=== PATIENT | male | born 1930 | race Caucasian/White ===

== ENCOUNTER 2017-10-24 11:57 | Emergency (ER) | payer MEDICARE ==
[2017-10-24 12:09] VITALS: PULSE 76
[2017-10-24] MEDS ORDERED: NORCO 5/325 MG PO ONE (12:21)
[2017-10-24] MEDS ORDERED: NORCO 5/325 MG ONE (12:25)
--- NOTE | 2017-10-24 12:27 | ERPHSYRPT ---
- History of Present Illness Time Seen by Provider: 10/24/17 12:15 Source: patient Exam Limitations: no limitations Patient Subjective Stated Complaint: Bilateral Lower leg pain x10 years, worse in 4 days. Triage Nursing Assessment: Pt presents to the ED with complaints of bilateral lower leg pain, hx of neuropathy. Pt denies new injury but states he injured his back 10 years ago. Pt states he has had pain for 10 years with worsening x4 days. No distress noted, skin PWD. Physician History: Pt has been c/o chronic, bilateral leg pain, for years. He started c/o more severe pain in both legs since this morning. He denies any injury, severe back pain, fever, difficulty breathing or chest pain. He has been taking Neurontin with no relief. He called his doctor's office today and was instructed to come here. Method of Injury: unknown Occurred: this morning Quality: constant Severity of Pain-Max: moderate Severity of Pain-Current: moderate Lower Extremities Pain: leg: bilateral Modifying Factors: Improves With: nothing Associated Symptoms: none Allergies/Adverse Reactions: No Known Drug Allergies Allergy (Verified 09/12/17 14:51) Home Medications: Aspirin 81 mg PO DAILY 11/06/13 [History] Glipizide 5 mg [Glucotrol 5 MG] 5 mg PO BID 11/06/13 [History] Triamterene/Hydrochlorothiazid [Triamterene-Hctz 37.5-25 mg Tb] 1 each PO BID [History] Finasteride 5 mg [Proscar 5 MG] 5 mg PO DAILY 10/24/17 [History] Insulin Glargine,Hum.rec.anlog [Lantus Solostar] 8 units SQ DAILY 10/24/17 [ History] Pregabalin [Lyrica 100Mg] 100 mg PO BID 10/24/17 [History] Saxagliptin HCl [Onglyza] 5 mg PO DAILY 10/24/17 [History] Tamsulosin HCl [Tamsulosin HCl] 0.4 mg PO DAILY 10/24/17 [History] Hx Tetanus, Diphtheria Vaccination/Date Given: Yes Hx Influenza Vaccination/Date Given: Yes Hx Pneumococcal Vaccination/Date Given: Yes Immunizations Up to Date: Yes - Review of Systems Constitutional: No Symptoms Musculoskeletal: Other (bilateral leg pain) All Other Systems: Reviewed and Negative - Past Medical History Pertinent Past Medical History: Yes Neurological History: Other ENT History: No Pertinent History Cardiac History: Hypertension Respiratory History: No Pertinent History Endocrine Medical History: Diabetes Type II Musculoskeletal History: Osteoarthritis GI Medical History: No Pertinent History History: Other Psycho-Social History: No Pertinent History Male Reproductive Disorders: Prostate Problems Other Medical History: URINE RETENTION - Past Surgical History Past Surgical History: Yes Neuro Surgical History: No Pertinent History Cardiac: No Pertinent History Respiratory: No Pertinent History Gastrointestinal: Cholecystectomy Genitourinary: No Pertinent History Musculoskeletal: No Pertinent History Male Surgical History: No Pertinent History - Social History Smoking Status: Never smoker Exposure to second hand smoke: No Drug Use: none Patient Lives Alone: No - Nursing Vital Signs Nursing Vital Signs: Initial Vital Signs Temperature 97.8 F 10/24/17 12:04 Pulse Rate 76 10/24/17 12:04 Respiratory Rate 16 10/24/17 12:04 Blood Pressure 141/80 10/24/17 12:04 O2 Sat by Pulse Oximetry 96 10/24/17 12:04 Pain Scale Pain Intensity 9 - Physical Exam General Appearance: no apparent distress Eyes, Ears, Nose, Throat Exam: normal ENT inspection Neck Exam: normal inspection, non-tender, supple, No JVD Cardiovascular/Respiratory Exam: chest non-tender, normal breath sounds, regular rate/rhythm, heart sounds normal, No no JVD Gastrointestinal/Abdominal Exam: non-tender, soft, no organomegaly Back Exam: normal inspection, No CVA tenderness Hips Exam: bilateral: non-tender Legs Exam: bilateral leg: pain, soft tissue tenderness (diffuse, no direct calf tenderness, swelling, edema, Chalino's sign negative) Knees Exam: bilateral knee: non-tender Foot Exam: bilateral foot: other (poor, but palpable distal pulses on both feet. ) Neuro/Tendon Exam: normal motor functions, No motor deficit Mental Status Exam: alert, oriented x 3 Skin Exam: normal color, warm, dry, No rash SpO2 Interpretation: normal SpO2: 96 Oxygen Delivery: Room Air - Course Nursing assessment & vital signs reviewed: Yes - Radiology Ultrasound Exam Venous Lower Extremity Ultrasound: tele radiology report, negative Ordered Tests: Active Orders 24 hr Category Date Time Status VENOUS BILATERAL EXTREMITY [US] Stat Exams 10/24/17 13:05 Completed Medication Summary Discontinued Medications Generic Name Dose Route Start Last Admin Trade Name Bryan PRN Reason Stop Dose Admin Hydrocodone Bitart/Acetaminophen 1 tab 10/24/17 12:21 10/24/17 12:26 [place] 5/325 Mg PO 10/24/17 12:22 1 tab STAT ONE Administration Hydrocodone Bitart/Acetaminophen Confirm 10/24/17 12:25 [place] 5/325 Mg Administered 10/24/17 12:26 Dose 1 tab .ROUTE .STK-MED ONE - Progress Progress: improved Progress Note: 10/24/17 13:34 Pt states, improved, no severe pain or distress, no shortness of breath. - Departure Time of Disposition: 13:34 Departure Disposition: Home Clinical Impression: Neuropathy Condition: Stable Critical Care Time: No Referrals: TROY STEVENS [Primary Care Provider] - Additional Instructions: Rest x2-3 days, follow up with your physician in 3-4 days, return if severe pain , swelling or shortness of breath!
--- NOTE | 2017-10-24 13:10 | XRAY ---
Indication: Bilateral leg pain and swelling. Two-dimensional sonogram and color Doppler imaging of the major venous vessels of the left and right leg was performed. Comparison: None No thrombus seen in the examined deep venous vessels of the left and right leg including greater saphenous veins. Veins demonstrate normal compressibility. Venous waveforms are normal with and without augmentation. Impression: Left and right legs negative for DVT.
[2017-10-24 13:13] VITALS: BP 131/83
[2017-10-24 13:37] VITALS: O2SAT 96
== END 2017-10-24 13:47 | disposition home or self-care (01) ==
LOC: ED 11:57
DX: G62.9 Polyneuropathy, unspecified (principal); M79.605 Pain in left leg; M79.604 Pain in right leg; Z79.82 Long term (current) use of aspirin; Z79.899 Other long term (current) drug therapy
CPT/HCPCS: 93970; 99283; 99284; A9270-GY

== ENCOUNTER 2018-07-19 15:25 | Inpatient (IN) | payer MEDICARE ==
[2018-07-19] MEDS ORDERED: ROCEPHIN 1 Gm-D5w 50 ml Bag** 1 G/50 ML IVPB IV ONE (17:06)
[2018-07-19] MEDS: Sodium Chloride 0.9% 1000 ML 1,000 ML IV SCH (17:16)
[2018-07-19 18:22] LABS: Appearance TURBID (CLEAR); Bacteria MANY /HPF (NEGATIVE); Bilirubin NEGATIVE (NEGATIVE); Blood MODERATE Ery/ul (0-5); Glucose 50 mg/dL (NEGATIVE); Ketones TRACE (NEGATIVE); Leukocyte Esterase MODERATE (NEGATIVE); Nitrite NEGATIVE (NEGATIVE); Non-Squamous Epithelial Cells RARE /HPF (FEW); Protein,Urine Dip 100 (Negative); RBC 51-100 /HPF (0-2); Specific Gravity 1.012 (1.005-1.025); Urobilinogen NEGATIVE mg/dL (0-1); WBC >100 /HPF (0-5)
[2018-07-19] MEDS: TYLENOL 325 MG PO PRN (20:24)
[2018-07-19] MEDS ORDERED: MOTRIN 600 MG PO PRN (20:55)
[2018-07-19] MEDS ORDERED: LYRICA 100MG PO SCH (21:00)
[2018-07-19] MEDS: Flomax 0.4 MG PO SCH (21:09)
[2018-07-19] MEDS: ECOTRIN 81 MG PO SCH (21:09)
[2018-07-19] MEDS: LYRICA 100MG PO SCH (21:09)
[2018-07-19] MEDS: Maxzide-25MG Tablet PO SCH (21:09)
[2018-07-19] MEDS: NovoLOG Insulin SQ PRN (21:20)
[2018-07-20] MEDS ORDERED: Sodium Chloride 0.9% 500 ML 500 ML IV ONE (00:13)
[2018-07-20] MEDS ORDERED: LYRICA 100MG PO SCH (02:00)
[2018-07-20] MEDS: LYRICA 100MG PO SCH ×2 (04:18→21:01)
[2018-07-20] MEDS: ROCEPHIN 1 Gm-D5w 50 ml Bag** 1 G/50 ML IVPB IV SCH (09:12)
[2018-07-20] MEDS: Maxzide-25MG Tablet PO SCH (09:13)
--- NOTE | 2018-07-20 10:36 | PCM.HP ---
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 he was found to have pyuria and fever, u/a consistent with pyelonephritis. his strength is improving and he is feeling better today. - Review of Systems Constitutional: Fever, Chills, Weakness Respiratory: No Cough, No Short Of Breath Cardiac: No Chest Pain, No Edema, No Syncope Abdominal/Gastrointestinal: No Abdominal Pain, No Nausea, No Vomiting, No Diarrhea Genitourinary Symptoms: Other (jones in situ) Skin: No Rash Neurological: Focal Weakness (chronic from prior injury) Medications & Allergies Home Medications: Home Medication List Aspirin 81 mg PO HS 11/06/13 [History Confirmed 07/19/18] Triamterene/Hydrochlorothiazid [Triamterene-Hctz 37.5-25 mg Tb] 0.5 each PO BID 11/06/13 [History Confirmed 07/19/18] Pregabalin [Lyrica 100Mg] 100 mg PO UD 10/24/17 [History Confirmed 07/19/18] Tamsulosin HCl 0.8 mg PO HS 10/24/17 [History Confirmed 07/19/18] Cyanocobalamin 1000 Mcg/ml [Cyanocobalamin B-12 1000 MCG/ML] 1 ml IM UD [History Confirmed 07/19/18] Saxagliptin HCl [Onglyza] 2.5 mg PO 1400 07/19/18 [History Confirmed 07/19/18] Allergies/Adverse Reactions: Allergies Allergy/AdvReac Type Severity Reaction Status Date / Time No Known Drug Allergies Allergy Verified 09/12/17 14:51 - Past Medical History Past Medical History: Yes Neurological History: Other ENT History: No Pertinent History Cardiac History: Hypertension Respiratory History: No Pertinent History Endocrine Medical History: Diabetes Type II Musculoskelatal History: Osteoarthritis GI Medical History: No Pertinent History History: Other Pyscho-Social History: No Pertinent History Male Reproductive Disorders: Prostate Problems Comment: URINE RETENTION - Past Surgical History Past Surgical History: Yes Neuro Surgical History: No Pertinent History Cardiac History: No Pertinent History Respiratory Surgery: No Pertinent History GI Surgical History: Cholecystectomy Genitourinary Surgical Hx: No Pertinent History Musculskeletal Surgical Hx: No Pertinent History Male Surgical History: No Pertinent History - Social History Smoking Status: Never smoker Exposure to second hand smoke: No Alcohol: None Drug Use: none - Physical Exam Vital Signs: Vital Signs - 24 hr Temp Pulse Resp BP Pulse Ox 07/20/18 07:48 97.4 F 71 18 108/58 95 07/20/18 04:00 97.6 F 64 14 93/55 97 07/20/18 01:15 64 93/58 07/20/18 00:00 98.6 F 72 28 H 66/44 97 07/19/18 22:45 99.2 F 07/19/18 21:30 102.7 F 07/19/18 20:00 104.8 F 113 H 16 156/74 96 07/19/18 15:58 98.8 F 96 H 18 151/71 97 General Appearance: no apparent distress, alert Neurologic Exam: alert, oriented x 3, cooperative Eye Exam: PERRL/EOMI, eyes nml inspection Respiratory Exam: normal breath sounds, lungs clear, No respiratory distress Cardiovascular Exam: regular rate/rhythm, normal heart sounds, normal peripheral pulses Gastrointestinal/Abdomen Exam: soft, normal bowel sounds, No tenderness, No mass Extremity Exam: normal inspection, normal range of motion, pelvis stable Skin Exam: normal color, warm, dry, No rash Results - Labs Lab/Micro Results: Accuchecks Date 07/19/18 Time 17:15 Accucheck Value: 173 Accucheck Value: 323 Accucheck Value: 199 Lab Results-Last 24 Hours 07/19/18 07/19/18 07/19/18 Range/Units 16:10 16:37 17:27 Hemoglobin A1c 6.59 H (4.5-6.0) % Prealbumin 11.72 L (17.6-36.0) mg/dL Urine Color YELLOW (YELLOW) Urine Appearance TURBID (CLEAR) Urine pH 5.0 (5-6) Ur Specific [place] 1.012 (1.005-1.025) Urine Protein 100 (Negative) Urine Ketones TRACE (NEGATIVE) Urine Blood MODERATE (0-5) Jd/ul Urine Nitrite NEGATIVE (NEGATIVE) Urine Bilirubin NEGATIVE (NEGATIVE) Urine Urobilinogen NEGATIVE (0-1) mg/dL Ur Leukocyte Esterase MODERATE (NEGATIVE) Urine WBC (Auto) >100 (0-5) /HPF Urine RBC (Auto) 51-100 (0-2) /HPF U Epithel Cells (Auto) NONE (FEW) /HPF Urine Bacteria (Auto) MANY (NEGATIVE) /HPF U Non-Squamous Epi Cells RARE (FEW) /HPF Urine Culture Reflexed YES (NO) Urine Glucose 50 (NEGATIVE) mg/dL Microbiology 07/19/18 17:27 Urine Culture - Preliminary Urine, Catheterized GRAM NEGATIVE ID AND SENSITIVITY PENDING Accuchecks Date 07/19/18 Time 17:15 Accucheck Value: 173 Accucheck Value: 323 Accucheck Value: 199 Assessment/Plan (1) Acute pyelonephritis Current Visit: Yes Status: Acute Assessment & Plan: continue rocephin, blood and urine cultures pending. temp improved since admission. Code(s): N10 - ACUTE PYELONEPHRITIS (2) Hypotension Current Visit: Yes Status: Acute Assessment & Plan: hold dyazide at this time Code(s): I95.9 - HYPOTENSION, UNSPECIFIED (3) Weakness Current Visit: Yes Status: Acute Code(s): R53.1 - WEAKNESS
[2018-07-20] MEDS: Sodium Chloride 0.9% 1000 ML 1,000 ML IV SCH (16:37)
[2018-07-20] MEDS ORDERED: ROCEPHIN 1 Gm-D5w 50 ml Bag** 1 G/50 ML IVPB IV SCH (17:00)
[2018-07-20] MEDS: ECOTRIN 81 MG PO SCH (21:01)
[2018-07-20] MEDS: Flomax 0.4 MG PO SCH (21:01)
[2018-07-20] MEDS: NovoLOG Insulin SQ PRN (21:02)
[2018-07-21] MEDS: LYRICA 100MG PO SCH ×2 (03:18→21:35)
[2018-07-21] MEDS: TYLENOL 325 MG PO PRN ×2 (03:18→21:35)
[2018-07-21] MEDS: Sodium Chloride 0.9% 1000 ML 1,000 ML IV SCH (04:48)
[2018-07-21 05:50] LABS: BASOPHIL % 0.1 % (0.0-0.4); Basophil (Absolute #) 0.01 (0-0.4); Eosinophil % 3.4 % (0.00-5.0); Eosinophil (Absolute #) 0.29 (0-0.5); Granulocytes % 67.7 % (36.0-66.0); Hematocrit 37.6 % (42-50); Hemoglobin 12.9 gm/dl (12.5-18.0); Lymphocytes % 14.3 % (24.0-44.0); Mean Cell Volume 89.1 fl (78-100); Mean Corpuscular Hgb Concent. 34.3 g/dl (32-36); Mean Platelet Volume 11.4 fl (6-9.5); Monocyte (Absolute #) 1.22 (0.0-1.3); Monocytes % 14.5 % (0.0-12.0); Platelet Count 123 K/mm3 (150-450); Red Blood Count 4.22 M/mm3 (4.1-5.6); Red Cell Distribution Width 14.3 % (11.5-14.0); White Blood Count 8.4 K/mm3 (4.0-10.5)
[2018-07-21 06:01] LABS: ANION GAP 10.9 MEQ/L (5-15); Calcium 8.4 mg/dL (8.4-10.2); Creatinine 1 1.59 mg/dL (0.66-1.25); Potassium 3.2 mmol/L (3.5-5.1)
[2018-07-21 06:06] LABS: Mean Corpuscular Hemoglobin 30.5 pg (26-32)
[2018-07-21] MEDS: ROCEPHIN 1 Gm-D5w 50 ml Bag** 1 G/50 ML IVPB IV SCH (09:31)
[2018-07-21] MEDS: ECOTRIN 81 MG PO SCH (21:35)
[2018-07-21] MEDS: Flomax 0.4 MG PO SCH (21:35)
[2018-07-22] MEDS: LYRICA 100MG PO SCH ×3 (02:20→22:02)
[2018-07-22] MEDS: ROCEPHIN 1 Gm-D5w 50 ml Bag** 1 G/50 ML IVPB IV SCH (09:37)
[2018-07-22] MEDS: Sodium Chloride 0.9% 1000 ML 1,000 ML IV SCH (15:05)
[2018-07-22] MEDS: NovoLOG Insulin SQ PRN (16:52)
--- NOTE | 2018-07-22 19:24 | PCM.NOTE ---
Date and Time: 07/22/181918 Subjective Assessment: Late entry for exam done at 0830 today. Pt is tolerating po. He is concerned about changes in either his water pill or diabetes medicine, since admission. - Review of Systems Constitutional: No Fever Abdominal/Gastrointestinal: No Vomiting Objective Exam General Appearance: no apparent distress, alert Neurologic Exam: cooperative, other (speech is tangential) Skin Exam: normal color, warm, dry, rash Eye Exam: eyes nml inspection Respiratory Exam: normal breath sounds, lungs clear, wheezing, No crackles/rales , No rhonchi Cardiovascular Exam: regular rate/rhythm, normal heart sounds, murmur Gastrointestinal/Abdomen Exam: soft, normal bowel sounds, No tenderness Extremity Exam: normal inspection, No pedal edema, No swelling OBJECTIVE DATA Vital Signs: Vital Signs - 24 hr Temp Pulse Resp BP Pulse Ox 07/22/18 15:57 98.4 F 78 18 176/77 97 07/22/18 12:00 97.9 F 65 18 157/74 97 07/22/18 08:00 98.2 F 72 18 138/71 98 07/22/18 04:00 97.6 F 86 20 134/83 96 07/21/18 23:44 98.4 F 77 18 138/75 96 07/21/18 20:00 99.1 F 87 17 125/92 96 Pain Assessment - Last Documented Pain Intensity 0 Pain Scale Used 0-10 Pain Scale Intake and Output: Intake & Output 07/20/18 07/21/18 07/22/18 07/23/18 11:59 11:59 11:59 11:59 Intake Total 2935 3135 2417 960 Output Total 1000 2300 3425 300 Balance 1935 835 -1008 660 Weight 70.5 kg 70.5 kg Lab Results: Accuchecks Date 07/21/18 Time 22:00 Accucheck Value: 251 Accucheck Value: 247 Accucheck Value: 128 Accucheck Value: 184 Assessment/Plan (1) Acute pyelonephritis Current Visit: Yes Status: Acute Assessment & Plan: Advised he should stay at least 1 more day on IV antibiotics. He is feeling pretty good but I was somewhat concerned by his inability to stay on subject - unsure if that's his baseline. + Blood culture with what appears to be same E. coli as in urine culture. Code(s): N10 - ACUTE PYELONEPHRITIS (2) Urinary retention Current Visit: Yes Status: Acute Code(s): R33.9 - RETENTION OF URINE, UNSPECIFIED (3) Acute on chronic renal failure Current Visit: No Status: Acute Qualifiers: Acute renal failure type: unspecified Chronic kidney disease stage: unspecified stage Qualified Code(s): N17.9 - Acute kidney failure, unspecified ; N18.9 - Chronic kidney disease, unspecified Assessment & Plan: recheck in a.m. 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
[2018-07-22] MEDS: Flomax 0.4 MG PO SCH (22:02)
[2018-07-22] MEDS: ECOTRIN 81 MG PO SCH (22:02)
[2018-07-23] MEDS: Sodium Chloride 0.9% 1000 ML 1,000 ML IV SCH (03:30)
[2018-07-23] MEDS: LYRICA 100MG PO SCH (03:30)
[2018-07-23 06:04] LABS: Hematocrit 39.7 % (42-50); Hemoglobin 13.5 gm/dl (12.5-18.0); Mean Cell Volume 88.4 fl (78-100); Mean Corpuscular Hemoglobin 30.1 pg (26-32); Mean Platelet Volume 11.1 fl (6-9.5); Platelet Count 140 K/mm3 (150-450); Red Blood Count 4.49 M/mm3 (4.1-5.6); Red Cell Distribution Width 14.1 % (11.5-14.0); White Blood Count 8.2 K/mm3 (4.0-10.5)
[2018-07-23 06:05] LABS: ANION GAP 10.5 MEQ/L (5-15); Calcium 8.4 mg/dL (8.4-10.2); Creatinine 1 1.22 mg/dL (0.66-1.25); Potassium 3.5 mmol/L (3.5-5.1)
--- NOTE | 2018-07-23 08:03 | PCM.DS ---
Discharge Summary Date of Admission: 07/19/18 15:25 Admitting Physician: ESTER PEREZ Primary Care Provider: ESTER PEREZ Allergies Allergies No Known Drug Allergies Allergy (Verified 09/12/17 14:51) Hospital Summary - Hospital Course Hospital Course: patient was admitted directly from [facility], febrile and found to have acute pyelonephritis and bacteremia, has been afebrile and tolerating po. e coli in blood culture and [facility], will send home on keflex based on c and s. [facility] he lives with his and son. - Vitals & Intake/Output Vital Signs: Vital Signs Temperature 98 F 07/23/18 07:43 Pulse Rate 69 07/23/18 07:43 Respiratory Rate 22 07/23/18 07:43 Blood Pressure 160/79 07/23/18 07:43 O2 Sat by Pulse Oximetry 97 07/23/18 07:43 Intake & Output: Intake & Output 07/20/18 07/21/18 07/22/18 07/23/18 11:59 11:59 11:59 11:59 Intake Total 2935 3135 2417 2698 Output Total 1000 2300 3425 2950 Balance 6730 385 -100 -326 Weight 70.5 kg 70.5 kg - Lab Result Diagrams: 07/23/18 05:23 07/23/18 05:23 Lab Results-Last 24 Hrs: Accuchecks Accucheck Value: 189 Accucheck Value: 251 Accucheck Value: 247 Lab Results-Last 24 Hours 07/23/18 07/23/18 Range/Units 05:23 05:23 WBC 8.2 (4.0-10.5) K/mm3 RBC 4.49 (4.1-5.6) M/mm3 Hgb 13.5 (12.5-18.0) gm/dl Hct 39.7 L (42-50) % MCV 88.4 (78-100) fl MCH 30.1 (26-32) pg MCHC 34.0 (32-36) g/dl RDW 14.1 H (11.5-14.0) % Plt Count 140 L (150-450) K/mm3 MPV 11.1 H (6-9.5) fl Sodium 139 (137-145) mmol/L Potassium 3.5 (3.5-5.1) mmol/L Chloride 101 (98-107) mmol/L Carbon Dioxide 31 H (22-30) mmol/L Anion Gap 10.5 (5-15) MEQ/L BUN 17 (9-20) mg/dL Creatinine 1.22 (0.66-1.25) mg/dL Estimated GFR 59.4 ML/MIN Glucose 168 H (74-106) mg/dL Calcium 8.4 (8.4-10.2) mg/dL Micro Results-Entire Visit: Microbiology 07/19/18 16:55 Blood Culture Gram Stain - Final Blood Blood Culture - Final Escherichia Coli 07/19/18 17:27 Urine Culture - Final Urine, Catheterized Escherichia Coli Accuchecks Accucheck Value: 189 Accucheck Value: 251 Accucheck Value: 247 Discharge Exam General Appearance: no apparent distress, alert Neurologic Exam: alert, oriented x 3 Skin Exam: normal color, warm, dry Respiratory Exam: normal breath sounds, lungs clear, No respiratory distress Cardiovascular Exam: regular rate/rhythm, normal heart sounds Gastrointestinal/Abdomen Exam: soft, No tenderness, No mass Extremity Exam: normal inspection, normal range of motion Final Diagnosis/Problem List - Final Discharge Diagnosis/Problem (1) Bacteremia Current Visit: Yes Status: Acute Assessment & Plan: home on keflex based on culture (2) Acute pyelonephritis Current Visit: Yes Status: Acute Assessment & Plan: improved, home on po keflex (3) Acute on chronic renal failure Current Visit: No Status: Acute Assessment & Plan: resolved with hydration and treatment of infection, bun/cr normalized since admission. (4) Hypotension Current Visit: Yes Status: Acute Assessment & Plan: was related to bacteremia, has resolved, will resume diuretic on discharge (5) Weakness Current Visit: Yes Status: Acute - Discharge Disposition: Home, Self-Care Condition: Stable Prescriptions: New Cephalexin Mh 500 mg [Keflex 500 mg] 500 mg PO QID #40 capsule Continue Aspirin 81 mg PO HS Triamterene/Hydrochlorothiazid [Triamterene-Hctz 37.5-25 mg Tb] 0.5 each PO BID Tamsulosin HCl 0.8 mg PO HS Pregabalin [Lyrica 100Mg] 100 mg PO UD Cyanocobalamin 1000 Mcg/ml [Cyanocobalamin B-12 1000 MCG/ML] 1 ml IM UD Saxagliptin HCl [Onglyza] 2.5 mg PO 1400 Additional Inst[facility]: [facility]
[2018-07-23] MEDS: ROCEPHIN 1 Gm-D5w 50 ml Bag** 1 G/50 ML IVPB IV SCH (08:19)
[2018-07-23 11:14] VITALS: BP 158/70; PULSE 72; O2SAT 96
== END 2018-07-23 12:00 | disposition home or self-care (01) | DRG 872 ==
LOC: MED SURG 15:25
PROVIDERS: ADMIT Family Medicine; ATTEND Family Medicine
DX: R78.81 Bacteremia (principal); N10 Acute pyelonephritis; N17.9 Acute kidney failure, unspecified; B96.20 Unspecified Escherichia coli [E. coli] as the cause of diseases classified elsewhere; N18.9 Chronic kidney disease, unspecified; I95.9 Hypotension, unspecified; R33.9 Retention of urine, unspecified; E11.9 Type 2 diabetes mellitus without complications; R53.1 Weakness; Z79.899 Other long term (current) drug therapy
CPT/HCPCS: 36415; 80048; 80053; 81001; 82962; 83036; 84134; 85025; 85027; 87040; 87077; 87086; 87186; J0696; A9270-GY